=== PATIENT | female | born 1960 | race Caucasian/White ===

== ENCOUNTER → 2020-01-09 | Outpatient (CLI) | payer BC ==
[~2020-01-09] MED LIST: FURO100EL; Flonase 0.05% N16 GM; LEVSOD50; LORA10ER PO; METPHE18ER; PSEU120ER
[2020-01-09 18:44] LABS: Percent Saturation 14.6 % (15.0-50.0)
[2020-01-09 18:47] LABS: Thyroid Stimulating Hormone 0.533 uIU/mL (0.360-4.800)
== END | disposition home or self-care (01) ==
LOC: LAB 17:00
PROVIDERS: Internal Medicine Hematology & Oncology
DX: D50.0 Iron deficiency anemia secondary to blood loss (chronic) (principal); E03.9 Hypothyroidism, unspecified
CPT/HCPCS: 82728; 83540; 83550; 84436; 84443